=== PATIENT | male | born 1970 | race Asian ===

== ENCOUNTER → 2023-10-02 06:31 | Day surgery (SDC) | payer BC, SELFPAY | LOC: GI 06:31 | PROVIDERS: ATTENDING PHYSICIAN Internal Medicine; FAMILY PHYSICIAN Internal Medicine | DX: K20.90 Esophagitis, unspecified without bleeding (principal); K29.80 Duodenitis without bleeding; Q39.9 Congenital malformation of esophagus, unspecified | CPT/HCPCS: 43239; 88305; 88342 ==